=== PATIENT | female | born 1960 | race Caucasian/White ===

== ENCOUNTER 2017-06-30 22:03 | Emergency (ER) | payer OTHER ==
[2017-06-30 22:08] VITALS: BP 146/81
[2017-06-30] MEDS ORDERED: LIDOCAINE 1%/EPINEPHRINE INJ 20 ML VIAL INJ ONE (22:31)
--- NOTE | 2017-06-30 23:24 | ER Document Report ---
ED General - General Chief Complaint: Lip Injury Stated Complaint: LIP LACERATION Time Seen by Provider: 06/30/17 22:25 Notes: Patient is a 56-year-old female who presents with a lip laceration that she sustained after she was struck in the face of the medicine ball. Patient states that she was doing a workout and accidentally hit herself in the face of the medicine ball splitting her lower lip. She states that she did not sustain any additional injuries. Her only complaint is of a dull, throbbing pain to her lower lip. Bleeding has been controlled with direct pressure and ice. No history of similar injury in the past. She is currently visiting from out of town and therefore has been unable to see her primary care doctor regarding this concern. Her tetanus shot is currently up-to-date by her report. - Related Data Allergies/Adverse Reactions: No Known Allergies Allergy (Unverified 06/30/17 22:05) Past Medical History - General Information source: Patient - Social History Smoking Status: Never Smoker Frequency of alcohol use: None Drug Abuse: None Lives with: Family Family History: Reviewed & Not Pertinent Patient has suicidal ideation: No Patient has homicidal ideation: No Renal/ Medical History: Denies: Hx Peritoneal Dialysis Review of Systems - Review of Systems Notes: Constitutional: Negative for fever. Eyes: Negative for visual changes. ENT: Positive for facial injury Cardiovascular: Negative for chest injury. Respiratory: Negative for shortness of breath. Gastrointestinal: Negative for abdominal injury. Genitourinary: Negative for genital injury Musculoskeletal: Negative for back injury. Skin: Positive for laceration/abrasions. Neurological: Negative for head injury. Physical Exam - Vital signs Vitals: Temp Pulse Resp BP Pulse Ox 97.6 F 86 12 146/81 H 94 06/30/17 22:07 06/30/17 22:07 06/30/17 22:07 06/30/17 22:07 06/30/17 22:07 Interpretation: Hypertensive Notes: PHYSICAL EXAMINATION: GENERAL: Well-appearing, no acute distress. HEAD: Atraumatic, normocephalic. EYES: Pupils equal round and reactive to light, extraocular movements intact, sclera anicteric, conjunctiva are normal. ENT: nares patent, no oral pharyngeal trauma. No hemotympanum, no Alvarado's sign , no raccoon eyes. Flap type 2cm laceration over the left lower lip NECK: No midline cervical spine tenderness. Patient able to move their head to 45 bilaterally without any discomfort. LUNGS: Breath sounds clear to auscultation bilaterally and equal. No wheezes rales or rhonchi. HEART: Regular rate and rhythm without murmurs. EXTREMITIES: Normal range of motion, no pitting or edema. NEUROLOGICAL: Moves all extremities spontaneously and on command. PSYCH: Normal mood, normal affect. SKIN: Warm, Dry, normal turgor, lip laceration as above Course - Re-evaluation Re-evalutation: 06/30/17 23:22 Patient presents with a 2 cm, flap type laceration over the left lower lip without crossing the vermilion border. This was closed with 2 6-0 nylon sutures without difficulty. No additional injuries were sustained. Her tetanus immunization is already up-to-date. At this time will discharge with return precautions and follow-up recommendations. Verbal discharge instructions given a the bedside and opportunity for questions given. Medication warnings reviewed. Patient is in agreement with this plan and has verbalized understanding of return precautions and the need for primary care follow-up in the next 1 week for suture removal and sooner if any concerns arise. - Vital Signs Vital signs: Temp Pulse Resp BP Pulse Ox 97.6 F 86 12 146/81 H 94 06/30/17 22:07 06/30/17 22:07 06/30/17 22:07 06/30/17 22:07 06/30/17 22:07 Procedures - Laceration/Wound Repair Lip Wound length (cm): 2 Wound's Depth, Shape: Flap Laceration pre-procedure: Sterile PPE donned Anesthetic type: 1% Lidocaine w/epi Volume Anesthetic (mLs): 1 Wound explored: Clean Irrigated w/ Saline (mLs): 400 Wound Debrided: Minimal Wound Repaired With: Sutures Suture Size/Type: 6:0, Nylon Number of Sutures: 2 Layer Closure?: No Post-procedure NV exam normal: Yes Complications: No Discharge - Discharge Clinical Impression: Lip laceration Qualifiers: Encounter type: initial encounter Qualified Code(s): S01.511A - Laceration without foreign body of lip, initial encounter Condition: Good Disposition: HOME, SELF-CARE Additional Instructions: Please return to your primary doctor, the ED, or an urgent care in 7 days for suture removal. Return immediately if you develop spreading redness around the wound, pus from the wound, worsening pain, or a fever of >100.4. Keep the area clean and dry. Wash gently with soap and water twice daily and cover with antibiotic ointment.
== END 2017-07-01 00:35 | disposition home or self-care (01) ==
LOC: ER 22:03
DX: S01.511A Laceration without foreign body of lip, initial encounter (principal); W21.09XA Struck by other hit or thrown ball, initial encounter; Y93.B9 Activity, other involving muscle strengthening exercises; Y92.59 Other trade areas as the place of occurrence of the external cause
CPT/HCPCS: 99283; 12011; J3490